=== PATIENT | female | born 1985 | race Two or more races ===

== ENCOUNTER 2023-09-04 13:36 | Emergency (ER) | payer MEDICAID, OTHER ==
[~2023-09-04] VITALS: Ht 157.5 cm; Wt 86.0 kg
[2023-09-04 16:50] VITALS: BP 121/72; PULSE 92; RESP 18; TEMP 98.2; O2SAT 99
[2023-09-04] MEDS: KETOROLAC TROMETH 60MG/2ML VIAL IM ONE (17:01)
[2023-09-04] MEDS ORDERED: IBUP-1456 PO (17:28)
[2023-09-04] MEDS ORDERED: METH-1182 PO (17:28)
== END 2023-09-04 17:49 | disposition home or self-care (01) ==
LOC: ER 13:36 → EDBD 13:36 → ER 17:46
DX: S39.012A Strain of muscle, fascia and tendon of lower back, initial encounter (principal); S76.912A Strain of unspecified muscles, fascia and tendons at thigh level, left thigh, initial encounter; V63.5XXA Driver of heavy transport vehicle injured in collision with car, pick-up truck or van in traffic accident, initial encounter; Y93.I9 Activity, other involving external motion; Y92.410 Unspecified street and highway as the place of occurrence of the external cause; Y99.8 Other external cause status
CPT/HCPCS: 72100; 73552; 96372; 99284; J1885